=== PATIENT | female | born 1995 | race Caucasian/White ===

== ENCOUNTER → 2023-05-30 14:27 | Outpatient (CLI) | payer OTHER, SELFPAY ==
--- NOTE | 2023-05-30 14:28 | DI.RAD.S_ITS ---
PROCEDURE: XR KNEE RT 3V INDICATIONS: right knee pain and swelling TECHNIQUE: 3 views of the knee were acquired. COMPARISON: None. FINDINGS: Bones: No fractures or dislocations. No suspicious bony lesions. Soft tissues: No joint effusion. No suspicious soft tissue calcifications. IMPRESSION: No significant plain film abnormality is seen. If it would be helpful for clinical management decision making, please consider a dedicated, scheduled knee MRI for further evaluation (assuming that there is no contraindication). Dictated by: Judd Ventura M.D. on 05/30/2023 at 13:51 Approved by: Judd Ventura M.D. on 05/30/2023 at 13:51
== END ==
PROVIDERS: Referring Provider Physician Assistant; Visit Provider Physician Assistant
DX: M25.561 Pain in right knee (principal)
CPT/HCPCS: 73562